=== PATIENT | female | born 1935 | race Caucasian/White ===

== ENCOUNTER → 2018-08-12 08:34 | Outpatient (CLI) | payer MEDICARE, SELFPAY ==
[2018-08-12 08:36] LABS: Microscopic, Urine URINE MICROSCOPIC (MICROSCOPIC)
[2018-08-12 09:10] LABS: Appearance,Urine SL CLOUDY (Clear); Bilirubin,Urine Negative (Negative); Blood, Urine Negative (Negative); Color,Urine YELLOW (Yellow); Glucose,Urine (UA) Negative (Negative); Ketones,Urine Negative (Negative); Leukocyte Esterase,Urine 1+ (Negative); Nitrate,Urine Negative (Negative); PH,Urine 5.5 (5.0-8.5); Protein,Urine Negative (Negative); Urobilinogen,Urine 0.2 EU/dl (0.2)
[2018-08-12 10:10] LABS: Bacteria,Urine Trace /lpf
== END ==
PROVIDERS: Visit Provider Nurse Practitioner Family
DX: R30.9 Painful micturition, unspecified (principal); R39.198 Other difficulties with micturition
CPT/HCPCS: 81001; 87086